=== PATIENT | female | born 1985 | race Caucasian/White ===

== ENCOUNTER 2018-08-01 12:00 | Emergency (ER) | payer OTHER ==
[~2018-08-01] VITALS: Ht 175.3 cm; Wt 56.9 kg
[~2018-08-01 12:00] MED LIST: ZOF4T PO
[2018-08-01 12:34] LABS: BASOPHILS % (AUTO) 0.8 % (0-1); EOSINOPHILS % (AUTO) 0.9 % (0-6); HEMATOCRIT 36.9 % (35.0-45.0); HEMOGLOBIN 12.6 g/dl (12.0-16.0); LYMPHOCYTES # (AUTO) 1.3 X10'3 (1.1-4.8); LYMPHOCYTES % (AUTO) 35.7 % (21-51); MEAN CORPUSCULAR HEMOGLOBIN 29.2 PG (27.0-31.0); MEAN CORPUSCULAR HGB CONC 34.2 % (33.0-36.5); MEAN CORPUSCULAR VOLUME 85.3 FL (78-98); MEAN PLATELET VOLUME 8.6 FL (7.4-10.4); MONOCYTES # (AUTO) 0.2 X10'3 (0-0.9); MONOCYTES % (AUTO) 4.6 % (2-12); NEUTROPHILS # (AUTO) 2.3 X10'3 (1.8-7.7); PLATELET COUNT 191 X10'3 (140-440); RED BLOOD COUNT 4.32 X10'6 (4.20-5.60); RED CELL DISTRIBUTION WIDTH 12.6 % (11.5-14.5); WHITE BLOOD COUNT 3.8 X10'3 (4.5-11.0)
[2018-08-01] MEDS ORDERED: normal saline 1000ML IV soln IVB ONE (12:35)
[2018-08-01] MEDS ORDERED: ondansetron/PF 4mg/2ml inj IV ONE (12:35)
[2018-08-01 12:59] LABS: ALANINE AMINOTRANSFERASE 7 U/L (12-78); ALBUMIN/GLOBULIN RATIO 1.1 (1.1-1.5); ALKALINE PHOSPHATASE 48 IU/L (46-116); ANION GAP 6 (8-16); ASPARTATE AMINO TRANSFERASE 11 U/L (10-37); BILIRUBIN,TOTAL 0.5 MG/DL (0.1-1.0); BLOOD UREA NITROGEN 14 MG/DL (7-18); BUN/CREATININE RATIO 17.3 (6.6-38.0); CALCIUM 8.8 MG/DL (8.5-10.1); CHLORIDE 105 MMOL/L (99-107); CREATININE 0.81 MG/DL (0.40-0.90); GLUCOSE 98 MG/DL (70-104); POTASSIUM 3.6 MMOL/L (3.5-5.1); SODIUM 140 MMOL/L (135-145); TOTAL CARBON DIOXIDE 29.3 MMOL/L (24-32); TOTAL PROTEIN 7.8 G/DL (6.4-8.2); eGFR 82 ML/MIN
[2018-08-01 13:02] LABS: INR 1.1 INR; PROTHROMBIN TIME 11.4 SECONDS (9.0-12.0)
[2018-08-01] MEDS ORDERED: ONDA4TAB9 PO (13:29)
[2018-08-01 13:32] VITALS: BP 108/66
== END 2018-08-01 13:56 | disposition home or self-care (01) ==
LOC: ER 12:01
DX: E86.0 Dehydration (principal); R11.0 Nausea; M32.9 Systemic lupus erythematosus, unspecified; Z98.890 Other specified postprocedural states; Z88.5 Allergy status to narcotic agent
CPT/HCPCS: 36415; 80053; 85025; 85610; 96361; 96374; 99284; J2405; J7030

== ENCOUNTER 2018-10-23 09:39 | Emergency (ER) | payer BC ==
[~2018-10-23] VITALS: Ht 175.3 cm; Wt 57.9 kg
[2018-10-23 10:15] LABS: BASOPHILS % (AUTO) 0.5 % (0-1); EOSINOPHILS # (AUTO) 0.1 X10'3 (0-0.9); HEMATOCRIT 39.9 % (35.0-45.0); HEMOGLOBIN 13.2 g/dl (12.0-16.0); LYMPHOCYTES # (AUTO) 1.4 X10'3 (1.1-4.8); LYMPHOCYTES % (AUTO) 40.9 % (21-51); MEAN CORPUSCULAR HEMOGLOBIN 29.2 PG (27.0-31.0); MEAN CORPUSCULAR HGB CONC 33.1 % (33.0-36.5); MEAN CORPUSCULAR VOLUME 88.1 FL (78-98); MEAN PLATELET VOLUME 9.1 FL (7.4-10.4); MONOCYTES # (AUTO) 0.2 X10'3 (0-0.9); MONOCYTES % (AUTO) 5.4 % (2-12); NEUTROPHILS # (AUTO) 1.8 X10'3 (1.8-7.7); NEUTROPHILS % (AUTO) 51.2 % (42-75); PLATELET COUNT 170 X10'3 (140-440); RED BLOOD COUNT 4.53 X10'6 (4.20-5.60); RED CELL DISTRIBUTION WIDTH 12.7 % (11.5-14.5); WHITE BLOOD COUNT 3.5 X10'3 (4.5-11.0)
[2018-10-23] MEDS ORDERED: morphine 4 MG/ML inj SYRINge IV PRN (10:15)
[2018-10-23] MEDS ORDERED: methylPREDNISolone sod succ 125mg/2ml vial IV ONE (10:15)
[2018-10-23] MEDS ORDERED: ondansetron/PF 4mg/2ml inj IV ONE (10:15)
[2018-10-23] MEDS ORDERED: normal saline 1000ML IV soln IVB ONE (10:15)
[2018-10-23 10:16] LABS: URINE HCG NEGATIVE (NEG)
[2018-10-23 10:22] LABS: CLARITY,URINE CLEAR (Clear); COLOR,URINE YELLOW (Yellow); GLUCOSE, URINE NEGATIVE (Neg); KETONES,URINE NEGATIVE (Neg); LEUKOCYTE ESTERASE ,URINE NEGATIVE (Neg); NITRITES, URINE NEGATIVE (Neg); OCCULT BLOOD,URINE NEGATIVE (Neg); PROTEIN,URINE NEGATIVE (Neg)
[2018-10-23 10:24] LABS: UA COLLECTION TYPE CLN CATCH MIDSTREAM
[2018-10-23 10:29] LABS: ALANINE AMINOTRANSFERASE 11 U/L (12-78); ALBUMIN 3.9 G/DL (3.4-5.0); ALKALINE PHOSPHATASE 56 IU/L (46-116); ANION GAP 8 (8-16); ASPARTATE AMINO TRANSFERASE 13 U/L (10-37); BILIRUBIN,TOTAL 0.4 MG/DL (0.1-1.0); BLOOD UREA NITROGEN 15 MG/DL (7-18); BUN/CREATININE RATIO 21.1 (6.6-38.0); CALCIUM 8.4 MG/DL (8.5-10.1); CHLORIDE 104 MMOL/L (99-107); CREATININE 0.71 MG/DL (0.40-0.90); GLUCOSE 92 MG/DL (70-104); INR 1.1 INR; LIPASE 110 U/L (73-393); POTASSIUM 3.8 MMOL/L (3.5-5.1); PROTHROMBIN TIME 11.3 SECONDS (9.0-12.0); SODIUM 140 MMOL/L (135-145); TOTAL CARBON DIOXIDE 27.9 MMOL/L (24-32); TOTAL PROTEIN 7.7 G/DL (6.4-8.2); eGFR > 90 ML/MIN
[2018-10-23] MEDS: diatr meglu/diatrizoate 30ml oral sol.-(3 dose) bottle PO SCH ×3 (10:31→12:11)
[2018-10-23] MEDS ORDERED: iohexol 300mg/ml 100ml inj. ONE (11:50)
[2018-10-23 13:28] VITALS: BP 100/52
== END 2018-10-23 13:32 | disposition home or self-care (01) ==
LOC: ER 09:41
DX: R10.84 Generalized abdominal pain (principal); Z98.890 Other specified postprocedural states; Z88.5 Allergy status to narcotic agent; Z79.899 Other long term (current) drug therapy
CPT/HCPCS: 36415; 74177; 80053; 81003; 81025; 83690; 85025; 85610; 96374; 96375; 99284; J2405; J2930; J7030; Q9963; Q9967

== ENCOUNTER 2020-07-20 09:27 | Emergency (ER) | payer BC ==
[~2020-07-20] VITALS: Ht 172.7 cm; Wt 59.1 kg
[2020-07-20 09:39] VITALS: BP 109/73
== END 2020-07-20 10:06 | disposition home or self-care (01) ==
LOC: ER 09:29
DX: M79.18 Myalgia, other site (principal); R53.83 Other fatigue; R50.9 Fever, unspecified; Z20.828 Contact with and (suspected) exposure to other viral communicable diseases; Z98.890 Other specified postprocedural states; Z88.5 Allergy status to narcotic agent; Z79.899 Other long term (current) drug therapy
CPT/HCPCS: 36415; 87635; 99283

== ENCOUNTER 2020-09-06 10:17 | Emergency (ER) | payer BC ==
[~2020-09-06] VITALS: Ht 175.3 cm; Wt 58.8 kg
[2020-09-06 10:22] VITALS: BP 119/60
[2020-09-06 11:22] LABS: BASOPHILS % (AUTO) 0.8 % (0-1); EOSINOPHILS % (AUTO) 1.1 % (0-6); HEMATOCRIT 40.7 % (35.0-45.0); HEMOGLOBIN 13.4 g/dl (12.0-16.0); LYMPHOCYTES # (AUTO) 1.2 X10'3 (1.1-4.8); LYMPHOCYTES % (AUTO) 30.6 % (21-51); MEAN CORPUSCULAR HEMOGLOBIN 28.7 PG (27.0-31.0); MEAN CORPUSCULAR VOLUME 86.9 FL (78-98); MONOCYTES # (AUTO) 0.2 X10'3 (0-0.9); MONOCYTES % (AUTO) 4.8 % (2-12); NEUTROPHILS # (AUTO) 2.4 X10'3 (1.8-7.7); NEUTROPHILS % (AUTO) 62.7 % (42-75); PLATELET COUNT 200 X10'3 (140-440); RED BLOOD COUNT 4.69 X10'6 (4.20-5.60); RED CELL DISTRIBUTION WIDTH 13.5 % (11.5-14.5); WHITE BLOOD COUNT 3.9 X10'3 (4.5-11.0)
[2020-09-06 11:35] LABS: ALANINE AMINOTRANSFERASE 9 U/L (12-78); ALBUMIN 4.8 G/DL (3.4-5.0); ALBUMIN/GLOBULIN RATIO 1.2 (1.1-1.5); ALKALINE PHOSPHATASE 58 IU/L (46-116); ANION GAP 9 (8-16); ASPARTATE AMINO TRANSFERASE 13 U/L (10-37); BILIRUBIN,TOTAL 0.4 MG/DL (0.1-1.0); BLOOD UREA NITROGEN 13 MG/DL (7-18); BUN/CREATININE RATIO 15.7 (6.6-38.0); CALCIUM 9.1 MG/DL (8.5-10.1); CHLORIDE 107 MMOL/L (99-107); CREATININE 0.83 MG/DL (0.40-0.90); GLUCOSE 93 MG/DL (70-104); POTASSIUM 3.7 MMOL/L (3.5-5.1); SODIUM 143 MMOL/L (135-145); TOTAL CARBON DIOXIDE 27.5 MMOL/L (24-32); TOTAL PROTEIN 8.7 G/DL (6.4-8.2); eGFR 79 ML/MIN
== END 2020-09-06 12:14 | disposition home or self-care (01) ==
LOC: ER 10:18
DX: D72.819 Decreased white blood cell count, unspecified (principal); R51.9 Headache, unspecified; R11.0 Nausea; R53.1 Weakness; Z98.890 Other specified postprocedural states; Z88.8 Allergy status to other drugs, medicaments and biological substances; Z79.899 Other long term (current) drug therapy
CPT/HCPCS: 36415; 71045; 80053; 83605; 84145; 85025; 87040; 99284

== ENCOUNTER 2020-09-11 20:30 | Emergency (ER) | payer BC ==
[~2020-09-11] VITALS: Ht 175.3 cm; Wt 58.0 kg
[2020-09-11] MEDS ORDERED: morphine 4 MG/ML inj SYRINge IV ONE ×2 (21:00→21:55)
[2020-09-11] MEDS ORDERED: normal saline 1000ml 1,000 ML IV ONE ×3 (21:00→21:40)
[2020-09-11] MEDS ORDERED: ondansetron/PF 4mg/2ml inj IV ONE ×2 (21:00→21:55)
[2020-09-11 21:09] LABS: BASOPHILS % (AUTO) 0.4 % (0-1); EOSINOPHILS % (AUTO) 0.3 % (0-6); HEMATOCRIT 39.1 % (35.0-45.0); HEMOGLOBIN 13.2 g/dl (12.0-16.0); MEAN CORPUSCULAR HEMOGLOBIN 29.1 PG (27.0-31.0); MEAN CORPUSCULAR HGB CONC 33.7 g/dL (33.0-36.5); MEAN CORPUSCULAR VOLUME 86.2 FL (78-98); MEAN PLATELET VOLUME 8.8 FL (7.4-10.4); MONOCYTES # (AUTO) 0.4 X10'3 (0-0.9); MONOCYTES % (AUTO) 4.6 % (2-12); NEUTROPHILS % (AUTO) 82.7 % (42-75); PLATELET COUNT 201 X10'3 (140-440); RED BLOOD COUNT 4.53 X10'6 (4.20-5.60); RED CELL DISTRIBUTION WIDTH 13.7 % (11.5-14.5); WHITE BLOOD COUNT 8.4 X10'3 (4.5-11.0)
[2020-09-11] MEDS ORDERED: iohexol 300mg/ml 100ml inj. ONE (21:20)
[2020-09-11 21:23] LABS: ALANINE AMINOTRANSFERASE 6 U/L (12-78); ALBUMIN 4.3 G/DL (3.4-5.0); ALBUMIN/GLOBULIN RATIO 1.2 (1.1-1.5); ALKALINE PHOSPHATASE 59 IU/L (46-116); ANION GAP 11 (8-16); ASPARTATE AMINO TRANSFERASE 15 U/L (10-37); BILIRUBIN,TOTAL 0.6 MG/DL (0.1-1.0); BLOOD UREA NITROGEN 15 MG/DL (7-18); BUN/CREATININE RATIO 16.3 (6.6-38.0); CHLORIDE 104 MMOL/L (99-107); CREATININE 0.92 MG/DL (0.40-0.90); GLUCOSE 113 MG/DL (70-104); LIPASE 79 U/L (73-393); POTASSIUM 3.6 MMOL/L (3.5-5.1); SODIUM 139 MMOL/L (135-145); TOTAL CARBON DIOXIDE 24.4 MMOL/L (24-32); TOTAL PROTEIN 7.9 G/DL (6.4-8.2); eGFR 70 ML/MIN
[2020-09-11 22:05] LABS: URINE HCG NEGATIVE (NEG)
[2020-09-11 22:07] LABS: CLARITY,URINE CLEAR (Clear); COLOR,URINE YELLOW (Yellow); GLUCOSE, URINE NEGATIVE (Neg); KETONES,URINE NEGATIVE (Neg); LEUKOCYTE ESTERASE ,URINE TRACE (Neg); NITRITES, URINE NEGATIVE (Neg); OCCULT BLOOD,URINE NEGATIVE (Neg); PH,URINE 5.5 (4.8-8.0); PROTEIN,URINE NEGATIVE (Neg); UA COLLECTION TYPE CLN CATCH MIDSTREAM; UROBILINOGEN,URINE 0.2 E.U/dL (0.2-1.0)
--- NOTE | 2020-09-11 22:10 | NUR ---
PT UP TO BR AND BACK TO BED WITHOUT INCIDENT. URINE SAMPLE COLLECTED. PT REPORTS NO RELIEF FROM FIRST DOSE OF PAIN MEDS. PROVIDER NOTIFIED. ORDERS RECEIVED AND MEDS GIVEN. RESTING, WILL CON TO MONITOR.
[2020-09-11 22:13] LABS: BACTERIA,URINE NONE SEEN /HPF (Neg); RBC,URINE NONE SEEN /HPF (0-2); SQUAMOUS EPITHELIAL CELL,UR FEW /LPF (FEW); WBC,URINE 0-4 /HPF (0-4)
--- NOTE | 2020-09-11 22:26 | NUR ---
PT REPORTS NO RELIEF FROM 2ND DOSE OF MORPHINE. PT MOANING AND CRYING ON GURNEY. PROVIDER NOTIFIED. PT UP TO BR TO ATTEMPT BM.
--- NOTE | 2020-09-11 22:41 | NUR ---
CONTINUES TO REPORT PAIN IS UNCONTROLLED. GLEN MANZO AT BEDSIDEJ TO REEVAL AND NOW DR. SLATER AT BEDSIDE ALSO EVALUATING PT. SHE IS CRYING AND MOANING.
[2020-09-11] MEDS ORDERED: LORazepam 2 mg/ml vial IV ONE (22:45)
[2020-09-11] MEDS ORDERED: magnesium citrate 296ml oral solution PO ONE (22:45)
[2020-09-11] MEDS ORDERED: ONDA4TAB6 PO (22:56)
[2020-09-11] MEDS ORDERED: POLY17PO10 PO (22:56)
--- NOTE | 2020-09-11 23:30 | NUR ---
PT REPORTS PAIN IS IMPROVED. DC'D HOME WITH PRESCRIPTIONS AND DC INSTRUCTIONS. AMB OUT OF ER WITHOUT DIFFICULTY.
[2020-09-11 23:31] VITALS: BP 98/65
== END 2020-09-11 23:44 | disposition home or self-care (01) ==
LOC: ER 20:31
DX: K59.00 Constipation, unspecified (principal); R10.84 Generalized abdominal pain; R11.10 Vomiting, unspecified; Z98.890 Other specified postprocedural states; Z88.8 Allergy status to other drugs, medicaments and biological substances; Z79.899 Other long term (current) drug therapy
CPT/HCPCS: 36415; 74019; 74177; 80053; 81001; 81025; 83690; 85025; 87088; 96361; 96374; 96375; 96376; 99285; J2060; J2270; J2405; J7030; Q9967

== ENCOUNTER 2021-03-19 16:54 | Emergency (ER) | payer BC ==
[~2021-03-19] VITALS: Ht 175.3 cm; Wt 61.4 kg
[~2021-03-19 16:54] MED LIST changes: +ONDA4TAB6 PO
[2021-03-19 17:19] VITALS: BP 99/73
[2021-03-19 19:47] LABS: BASOPHILS % (AUTO) 0.8 % (0-1); EOSINOPHILS # (AUTO) 0.1 X10'3 (0-0.9); EOSINOPHILS % (AUTO) 2.1 % (0-6); HEMATOCRIT 36.3 % (35.0-45.0); HEMOGLOBIN 12.3 g/dl (12.0-16.0); LYMPHOCYTES # (AUTO) 1.9 X10'3 (1.1-4.8); MEAN CORPUSCULAR HEMOGLOBIN 29.4 PG (27.0-31.0); MEAN CORPUSCULAR VOLUME 86.6 FL (78-98); MEAN PLATELET VOLUME 9.4 FL (7.4-10.4); MONOCYTES # (AUTO) 0.3 X10'3 (0-0.9); MONOCYTES % (AUTO) 6.2 % (2-12); NEUTROPHILS # (AUTO) 2.6 X10'3 (1.8-7.7); NEUTROPHILS % (AUTO) 52.9 % (42-75); PLATELET COUNT 178 X10'3 (140-440); RED BLOOD COUNT 4.19 X10'6 (4.20-5.60); RED CELL DISTRIBUTION WIDTH 13.4 % (11.5-14.5)
[2021-03-19 20:00] LABS: ALBUMIN 3.9 G/DL (3.4-5.0); ALBUMIN/GLOBULIN RATIO 1.1 (1.1-1.5); ALKALINE PHOSPHATASE 62 IU/L (46-116); ANION GAP 6 (8-16); ASPARTATE AMINO TRANSFERASE 15 U/L (10-37); BILIRUBIN,TOTAL 0.3 MG/DL (0.1-1.0); BLOOD UREA NITROGEN 12 MG/DL (7-18); BUN/CREATININE RATIO 16.9 (6.6-38.0); CALCIUM 8.4 MG/DL (8.5-10.1); CHLORIDE 107 MMOL/L (99-107); CREATININE 0.71 MG/DL (0.40-0.90); GLUCOSE 87 MG/DL (70-104); POTASSIUM 3.9 MMOL/L (3.5-5.1); SODIUM 140 MMOL/L (135-145); TOTAL CARBON DIOXIDE 27.5 MMOL/L (24-32); TOTAL PROTEIN 7.3 G/DL (6.4-8.2); eGFR > 90 ML/MIN
[2021-03-19 20:21] LABS: ALANINE AMINOTRANSFERASE 9 U/L (12-78)
[2021-03-19] MEDS ORDERED: acetaminophen 325mg tablet PO ONE (20:50)
[2021-03-19] MEDS ORDERED: ondansetron 4mg/5ml UD cup PO ONE (21:20)
[2021-03-19] MEDS ORDERED: ONDA4TAB6 PO (21:20)
[2021-03-19] MEDS ORDERED: ketorolac trometh. 30mg/ml inj. IM ONE (21:20)
[2021-03-19] MEDS ORDERED: ondansetron 4mg rapidly disintigrating tab PO ONE (21:25)
== END 2021-03-19 21:43 | disposition home or self-care (01) ==
LOC: ER 16:56
DX: R51.9 Headache, unspecified (principal); R11.0 Nausea; M54.2 Cervicalgia; R53.83 Other fatigue; Z98.890 Other specified postprocedural states; Z88.8 Allergy status to other drugs, medicaments and biological substances; Z79.899 Other long term (current) drug therapy
CPT/HCPCS: 36415; 80053; 85025; 96372; 99283; J1885

== ENCOUNTER 2021-06-09 08:33 | Emergency (ER) | payer BC ==
[~2021-06-09] VITALS: Ht 175.3 cm; Wt 63.6 kg
[2021-06-09 09:27] LABS: BASOPHILS % (AUTO) 0.6 % (0-1); EOSINOPHILS % (AUTO) 0.7 % (0-6); HEMATOCRIT 38.6 % (35.0-45.0); LYMPHOCYTES % (AUTO) 26.4 % (21-51); MEAN CORPUSCULAR HEMOGLOBIN 29.2 PG (27.0-31.0); MEAN CORPUSCULAR HGB CONC 33.7 g/dL (33.0-36.5); MEAN CORPUSCULAR VOLUME 86.5 FL (78-98); MEAN PLATELET VOLUME 9.1 FL (7.4-10.4); MONOCYTES # (AUTO) 0.2 X10'3 (0-0.9); MONOCYTES % (AUTO) 4.9 % (2-12); NEUTROPHILS # (AUTO) 2.5 X10'3 (1.8-7.7); NEUTROPHILS % (AUTO) 67.4 % (42-75); PLATELET COUNT 203 X10'3 (140-440); RED BLOOD COUNT 4.46 X10'6 (4.20-5.60); RED CELL DISTRIBUTION WIDTH 13.3 % (11.5-14.5); WHITE BLOOD COUNT 3.7 X10'3 (4.5-11.0)
[2021-06-09 09:34] LABS: ALANINE AMINOTRANSFERASE 9 U/L (12-78); ALBUMIN 4.3 G/DL (3.4-5.0); ALBUMIN/GLOBULIN RATIO 1.1 (1.1-1.5); ALKALINE PHOSPHATASE 62 IU/L (46-116); ANION GAP 11 (8-16); ASPARTATE AMINO TRANSFERASE 17 U/L (10-37); BILIRUBIN,TOTAL 0.4 MG/DL (0.1-1.0); BLOOD UREA NITROGEN 10 MG/DL (7-18); BUN/CREATININE RATIO 10.3 (6.6-38.0); CALCIUM 8.6 MG/DL (8.5-10.1); CHLORIDE 106 MMOL/L (99-107); CREATININE 0.97 MG/DL (0.40-0.90); GLUCOSE 93 MG/DL (70-104); LIPASE 54 U/L (73-393); POTASSIUM 3.9 MMOL/L (3.5-5.1); SODIUM 142 MMOL/L (135-145); TOTAL CARBON DIOXIDE 25.1 MMOL/L (24-32); TOTAL PROTEIN 8.3 G/DL (6.4-8.2); eGFR 65 ML/MIN
[2021-06-09 10:02] VITALS: BP 115/69
[2021-06-09] MEDS ORDERED: ondansetron/PF 4mg/2ml inj IV ONE (10:05)
[2021-06-09] MEDS ORDERED: normal saline 1000ML IV soln IV ONE (10:05)
[2021-06-09] MEDS ORDERED: ONDA4TAB6 PO (11:02)
== END 2021-06-09 12:08 | disposition home or self-care (01) ==
LOC: ER 08:33
DX: R11.2 Nausea with vomiting, unspecified (principal); R19.7 Diarrhea, unspecified; E86.0 Dehydration; R53.1 Weakness; Z98.890 Other specified postprocedural states; Z88.8 Allergy status to other drugs, medicaments and biological substances; Z79.899 Other long term (current) drug therapy
CPT/HCPCS: 36415; 80053; 83690; 85025; 96374; 99283; J2405; J7030

== ENCOUNTER 2021-06-09 18:47 | Emergency (ER) | payer BC ==
[~2021-06-09] VITALS: Ht 175.3 cm; Wt 65.0 kg
[2021-06-09] MEDS ORDERED: ondansetron 4mg rapidly disintigrating tab PO ONE (19:25)
[2021-06-09 20:12] LABS: BASOPHILS % (AUTO) 0.4 % (0-1); EOSINOPHILS % (AUTO) 0.7 % (0-6); HEMOGLOBIN 12.4 g/dl (12.0-16.0); LYMPHOCYTES # (AUTO) 1.7 X10'3 (1.1-4.8); LYMPHOCYTES % (AUTO) 27.4 % (21-51); MEAN CORPUSCULAR HGB CONC 33.6 g/dL (33.0-36.5); MEAN CORPUSCULAR VOLUME 86.2 FL (78-98); MONOCYTES # (AUTO) 0.3 X10'3 (0-0.9); MONOCYTES % (AUTO) 5.2 % (2-12); NEUTROPHILS # (AUTO) 4.1 X10'3 (1.8-7.7); NEUTROPHILS % (AUTO) 66.3 % (42-75); PLATELET COUNT 196 X10'3 (140-440); RED BLOOD COUNT 4.29 X10'6 (4.20-5.60); WHITE BLOOD COUNT 6.2 X10'3 (4.5-11.0)
[2021-06-09 20:18] LABS: ALANINE AMINOTRANSFERASE 8 U/L (12-78); ALBUMIN/GLOBULIN RATIO 1.1 (1.1-1.5); ALKALINE PHOSPHATASE 61 IU/L (46-116); ANION GAP 13 (8-16); ASPARTATE AMINO TRANSFERASE 14 U/L (10-37); BILIRUBIN,TOTAL 0.3 MG/DL (0.1-1.0); BLOOD UREA NITROGEN 9 MG/DL (7-18); BUN/CREATININE RATIO 9.2 (6.6-38.0); CALCIUM 8.4 MG/DL (8.5-10.1); CHLORIDE 105 MMOL/L (99-107); CREATININE 0.98 MG/DL (0.40-0.90); GLUCOSE 110 MG/DL (70-104); POTASSIUM 3.3 MMOL/L (3.5-5.1); SODIUM 141 MMOL/L (135-145); TOTAL CARBON DIOXIDE 22.6 MMOL/L (24-32); TOTAL PROTEIN 7.7 G/DL (6.4-8.2); eGFR 65 ML/MIN
--- NOTE | 2021-06-09 20:30 | NUR ---
WAS CALLED TO THE LOBBY AND PT LAYING ON THE FLOOR, FAMILY STATES THEY THINK SHE HAD A SEIZURE, SHE WAS REALLY STIFF PRIOR TO LAYING ON THE FLOOR. UNWITNESSED. PT PLACED ONTO A GURNEY AND PLACED IN FRONT OF H10. PT HAS EYES CLOSED. DID NOT HELP WITH TRANSFER, FULL BODY LIFT ONTO STRETCHER.
[2021-06-09 20:41] LABS: CLARITY,URINE CLEAR (Clear); COLOR,URINE STRAW (Yellow); GLUCOSE, URINE NEGATIVE (Neg); KETONES,URINE TRACE mg/dl (Neg); LEUKOCYTE ESTERASE ,URINE NEGATIVE (Neg); NITRITES, URINE NEGATIVE (Neg); OCCULT BLOOD,URINE SMALL (Neg); PH,URINE 6.5 (4.8-8.0); PROTEIN,URINE NEGATIVE (Neg); URINE HCG NEGATIVE (NEG); UROBILINOGEN,URINE 0.2 E.U/dL (0.2-1.0)
[2021-06-09 21:06] LABS: UA COLLECTION TYPE CLN CATCH MIDSTREAM
[2021-06-09 21:07] LABS: WBC,URINE NONE SEEN /HPF (0-4)
[2021-06-09 21:08] LABS: BACTERIA,URINE NONE SEEN /HPF (Neg); MUCUS STRANDS NONE SEEN /LPF (Neg); SQUAMOUS EPITHELIAL CELL,UR MODERATE /LPF (FEW)
--- NOTE | 2021-06-09 21:30 | NUR ---
PT HAS HIST OF LUPUS. PT WAS HERE EARLIER FOR RASH BILAT UNDERARMS. REPORTS NEW MEDICATION STARTED FOR POSSIBLE STAPH INFECTION. PT RESPONDING TO VOICE BUT NOT FOLLOWING COMMANDS AFTER REPORTED "SEIZURE LIKE ACTIVITY".
[2021-06-09] MEDS ORDERED: potassium Cl 20 mEq SR tablet PO ONE (22:50)
[2021-06-09] MEDS ORDERED: normal saline 1000ML IV soln IVB ONE (22:50)
[2021-06-09] MEDS ORDERED: haloperidol lactate 5mg/ml inj IM ONE ×2 (22:55→23:45)
[2021-06-09] MEDS ORDERED: iohexol 300mg/ml 100ml inj. ONE (23:02)
--- NOTE | 2021-06-09 23:50 | NUR ---
moved from hallway 7 to bed 11. received report from lara french. pt with friend at bedside.
[2021-06-10] MEDS ORDERED: potassium Cl 10 mEq/100mL bag IV ONE (00:25)
[2021-06-10 01:59] VITALS: BP 99/58
[2021-06-10] MEDS ORDERED: oxyCODONE/APAP 5-325mg tablet PO ONE (02:05)
[2021-06-10] MEDS ORDERED: diphenhydrAMINE 50 mg/ml inj IV ONE (02:05)
[2021-06-10] MEDS ORDERED: metoclopramide 5 mg/ml inj IV ONE (02:05)
--- NOTE | 2021-06-10 02:14 | NUR ---
transvaginal US completed. Pt continues to report severe, 8 out of 10 pain, to her abdomen. reports the haldol given 1 hr 45 min ago did not help with pain. nausea is joycelyn slightly improved. Dr. Abrams updated and adtl iv zofran ordered and 1 tab of percocet. Pt friend remains at bedside. reports no significant findings and Pt will be ok for DC and requests a PO challenge.
--- NOTE | 2021-06-10 02:39 | NUR ---
dr. duarte talking with pt about dc. PT GIVEN BENEDRYL FOR HER NAUSEA. OFFERED PERCOCET AND REGLAN AND PT DECLINED AND REPORTS SHE DOES NOT WANT ANY ADTL MEDICATIONS IN HER BODY SHE IS STILL FEELING "WEIRD AND TINGL AND OFF" SUSPECTING IT IS FROM THE HALDOL GIVEN EARLIER.
== END 2021-06-10 03:01 | disposition home or self-care (01) ==
LOC: ER 18:47
DX: R11.2 Nausea with vomiting, unspecified (principal); R10.84 Generalized abdominal pain; E87.6 Hypokalemia; R51.9 Headache, unspecified; R19.7 Diarrhea, unspecified; Z98.890 Other specified postprocedural states; Z88.8 Allergy status to other drugs, medicaments and biological substances; Z79.899 Other long term (current) drug therapy
CPT/HCPCS: 36415; 74177; 76830; 76856; 80053; 81001; 81025; 85025; 93976; 96361; 96365; 96372; 96375; 99285; J1200; J1630; J3480; J7030; Q9967